=== PATIENT | female | born 1995 | race African-American/Black ===

== ENCOUNTER 2017-12-19 09:10 | Emergency (ER) | payer OTHER ==
[~2017-12-19] VITALS: Ht 160 cm; Wt 68.0 kg
[~2017-12-19 09:10] MED LIST: BENTYL10 MG ORAL; KLOR-CON M1010 ME1 PO; NKM
[2017-12-19 09:15] VITALS: BP 152/105
[2017-12-19] MEDS ORDERED: LORazepam Inj 2mg/ml 1ml IV ONE (09:30)
--- NOTE | 2017-12-19 09:33 | Emergency Room Report ---
History of Present Illness General Chief Complaint: Nausea Source: Patient Present Illness HPI 22-year-old female presents ED for evaluation. Patient brought in by EMS. States that she smoked weed last night states she's been feeling very anxious and agitated since. Feels that her heart is racing. States that the weed was provided to her and she does not know what is in it. Denies chest pain or shortness of breath. Denies alcohol or other drug use. Denies hearing voices. No other aggravating relieving factors. Denies any other associated symptoms Allergies: Coded Allergies: No Known Allergies (Unverified , 09/30/15) Patient History Past Medical History: none Past Surgical History: none Pertinent Family History: none Social History: Denies: smoking, alcohol use, drug use Last Menstrual Period: currently on Now: No Immunizations: UTD Reviewed Nursing Documentation: PMH: Agreed; PSxH: Agreed Nursing Documentation-PMH Past Medical History: No Stated History Review of Systems All Other Systems: negative except mentioned in HPI Physical Exam Vital Signs Date Time Temp Pulse Resp B/P (MAP) Pulse Ox O2 Delivery O2 Flow Rate FiO2 12/19/17 09:03 98.2 18 152/105 98 Room Air 98.2 12/19/17 09:15 98 Sp02 EP Interpretation: reviewed, normal General Appearance: no apparent distress, alert, GCS 15, non-toxic Head: normocephalic, atraumatic Eyes: bilateral eye normal inspection, bilateral eye PERRL ENT: hearing grossly normal, normal pharynx, no angioedema, normal voice Neck: full range of motion, supple/symm/no masses Respiratory: chest non-tender, lungs clear, normal breath sounds, speaking full sentences Cardiovascular #1: regular rate, rhythm, no edema Cardiovascular #2: 2+ carotid (R), 2+ carotid (L), 2+ radial (R), 2+ radial (L) , 2+ dorsalis pedis (R), 2+ dorsalis pedis (L) Gastrointestinal: normal bowel sounds, non tender, soft, non-distended, no guarding, no rebound Rectal: deferred Genitourinary: normal inspection, no CVA tenderness Musculoskeletal: back normal, gait/station normal, normal range of motion, non- tender Neurologic: alert, oriented x3, responsive, motor strength/tone normal, sensory intact, speech normal Psychiatric: judgement/insight normal, memory normal, no suicidal/homicidal ideation, anxious Reflexes: 3+ bicep (R), 3+ bicep (L), 3+ tricep (R), 3+ tricep (L), 3+ knee (R) , 3+ knee (L) Skin: normal color, no rash, warm/dry, well hydrated Lymphatic: no adenopathy Medical Decision Making Diagnostic Impression: Primary Impression: Anxiety Additional Impression: Marijuana intoxication Qualified Codes: F12.929 - Cannabis use, unspecified with intoxication, unspecified ER Course Hospital Course 22 yo F presents with palpitations, anxiety after smoking marijuana Differential diagnoses include: arrythmia, anxiety, psychosis Clinical course Patient placed on stretcher. on manager cardiac cath. After initial history and physical I ordered labs, EKG, IVFs and ativan labs reviewed- no leukocytosis, hemoglobin/hematocrit stable, electrolytes okay , UDS + THC EKG - NSR, no acute ischemic changes interpreted by me Upon reassessment patient is observed feeling better. Patient states she feels better wishes to go home. Clinical findings consistent with anxiety reaction. Patient safe for discharge with close outpatient follow-up I. I feel this is a highly complex case requiring extensive working including EKG/Rhythm strip, Xray/CT/US, Blood/urine lab work, repeat exams while in ED, and administration of strong opiates/narcotics for pain control, admission to hospital or close patient follow up. Diagnosis - anxiety, marijuana intoxication Stable and discharged to home. Followup with PMD. Return to ED if symptoms recur or worse Labs Test 12/19/17 09:15 12/19/17 09:26 Urine HCG, Qualitative Negative (NEGATIVE) Urine Opiates Screen Negative (NEGATIVE) Urine Barbiturates Screen Negative (NEGATIVE) Phencyclidine (PCP) Screen Negative (NEGATIVE) Urine Amphetamines Screen Negative (NEGATIVE) Urine Benzodiazepines Screen Negative (NEGATIVE) Urine Cocaine Screen Negative (NEGATIVE) Urine Marijuana (THC) Screen Positive (NEGATIVE) White Blood Count 5.1 K/UL (4.8-10.8) Red Blood Count 5.12 M/UL (4.20-5.40) Hemoglobin 12.5 G/DL (12.0-16.0) Hematocrit 38.8 % (37.0-47.0) Mean Corpuscular Volume 76 FL (80-99) Mean Corpuscular Hemoglobin 24.5 PG (27.0-31.0) Mean Corpuscular Hemoglobin Concent 32.3 G/DL (32.0-36.0) Red Cell Distribution Width 14.8 % (11.6-14.8) Platelet Count 191 K/UL (150-450) Mean Platelet Volume 8.7 FL (6.5-10.1) Neutrophils (%) (Auto) 51.5 % (45.0-75.0) Lymphocytes (%) (Auto) 30.0 % (20.0-45.0) Monocytes (%) (Auto) 9.2 % (1.0-10.0) Eosinophils (%) (Auto) 8.1 % (0.0-3.0) Basophils (%) (Auto) 1.2 % (0.0-2.0) Sodium Level 141 MMOL/L (136-145) Potassium Level 3.8 MMOL/L (3.5-5.1) Chloride Level 107 MMOL/L (98-107) Carbon Dioxide Level 24 MMOL/L (21-32) Anion Gap 11 mmol/L (5-15) Blood Urea Nitrogen 6 mg/dL (7-18) Creatinine 0.7 MG/DL (0.55-1.30) Estimat Glomerular Filtration Rate > 60 mL/min (>60) Glucose Level 85 MG/DL (74-106) Calcium Level 9.0 MG/DL (8.5-10.1) Total Bilirubin 0.2 MG/DL (0.2-1.0) Aspartate Amino Transf (AST/SGOT) 40 U/L (15-37) Alanine Aminotransferase (ALT/SGPT) 51 U/L (12-78) Alkaline Phosphatase 75 U/L (46-116) Total Protein 7.3 G/DL (6.4-8.2) Albumin 3.8 G/DL (3.4-5.0) Globulin 3.5 g/dL Albumin/Globulin Ratio 1.1 (1.0-2.7) Salicylates Level 3.2 ug/mL (2.8-20) Acetaminophen Level < 2 MCG/ML (10-30) Serum Alcohol 12 mg/dL EKG Diagnostic Results Rate: normal Rhythm: NSR ST Segments: no acute changes ASA given to the pt in ED: No Rhythm Strip Diag. Results EP Interpretation: yes Rhythm: NSR, no PVC's, no ectopy Last Vital Signs Date Time Temp Pulse Resp B/P (MAP) Pulse Ox O2 Delivery O2 Flow Rate FiO2 12/19/17 09:15 98.2 98 18 152/105 98 Room Air 98.2 Status: improved Disposition: HOME, SELF-CARE Condition: Stable Referrals: Bam HANSEN,REFERRING (PCP) Bhavesh Chapman MD Dec 19, 2017 09:33
[2017-12-19 09:48] LABS: BASOPHILS % (AUTO) 1.2 % (0.0-2.0); EOSINOPHILS % (AUTO) 8.1 % (0.0-3.0); HEMATOCRIT 38.8 % (37.0-47.0); HEMOGLOBIN 12.5 G/DL (12.0-16.0); MEAN CORPUSCULAR VOLUME 76 FL (80-99); MONOCYTES % (AUTO) 9.2 % (1.0-10.0); NEUTROPHILS % (AUTO) 51.5 % (45.0-75.0); PLATELET COUNT 191 K/UL (150-450); RED BLOOD COUNT 5.12 M/UL (4.20-5.40); RED CELL DISTRIBUTION WIDTH 14.8 % (11.6-14.8); WHITE BLOOD COUNT 5.1 K/UL (4.8-10.8)
[2017-12-19 10:02] LABS: ANION GAP 11 mmol/L (5-15); BLOOD UREA NITROGEN 6 mg/dL (7-18); CARBON DIOXIDE 24 MMOL/L (21-32); CHLORIDE 107 MMOL/L (98-107); CREATININE 0.7 MG/DL (0.55-1.30); POTASSIUM 3.8 MMOL/L (3.5-5.1); SODIUM 141 MMOL/L (136-145)
[2017-12-19 10:07] LABS: ALANINE AMINOTRANSFERASE 51 U/L (12-78); ALBUMIN 3.8 G/DL (3.4-5.0); ALBUMIN/GLOBULIN RATIO 1.1 (1.0-2.7); ALKALINE PHOSPHATASE 75 U/L (46-116); ASPARTATE AMINO TRANSFERASE 40 U/L (15-37); BILIRUBIN,TOTAL 0.2 MG/DL (0.2-1.0)
[2017-12-19 10:43] VITALS: BP 138/98
--- NOTE | 2017-12-22 12:15 | Cardiology Report ---
APPROVED REPORT EKG Measurement Heart [id number] Normal sinus rhythm Normal ECG
== END 2017-12-19 10:45 | disposition home or self-care (01) ==
LOC: EDBD 09:10 → EMR 09:25
DX: F12.980 Cannabis use, unspecified with anxiety disorder (principal); R00.2 Palpitations
CPT/HCPCS: 36415; 80053; 80307; 80329; 81025; 85025; 93005; 96361; 96374; 96375; 99284; J2405; S0028

== ENCOUNTER 2019-03-06 16:01 | Emergency (ER) | payer OTHER ==
[~2019-03-06] VITALS: Ht 167.6 cm; Wt 65.8 kg
--- NOTE | 2019-03-06 16:40 | NUR ---
ED Nurse Note: Pt walked in from home complaining of vaginal bleeding x 7 days which is abnormal for her. She also said she took ecstacy last night and is very anxious. Heart rate elevated in 150s. Pt to be put in monitored bed. Respirations even and unlabored on room air. Vital signs stable otherwise
--- NOTE | 2019-03-06 17:14 | Emergency Room Report ---
History of Present Illness General Chief Complaint: Abdominal Pain Source: Patient Present Illness HPI 23 YO Female presents to the ED c/o palpitations, SOB, and heightened anxiety since approx 10am this morning. Pt. reports taking ecstasy at midnight last night. Pt. also c/o prolonged period. her cycle is normally 5 days. This cycle has been 7 days. Denies . Denies being sexually active. She is not on BC. She denies recent travel or immobilization. Patient denies cardiac history. Patient reports history of anxiety. Patient states she does not take any medications, vitamins or supplements. No other aggravating or relieving factors. Patient denies nausea, vomiting, constipation, diarrhea, or abdominal pain. She denies dysuria or hematuria. She reports some dizziness, Denies syncope or HOLLIS. denies visual changes. Allergies: Coded Allergies: No Known Allergies (Unverified , 09/30/15) Patient History Past Medical History: see triage record Past Surgical History: none Pertinent Family History: none Social History: Reports: drug use Last Menstrual Period: 02/27/19 Now: No Reviewed Nursing Documentation: PMH: Agreed; PSxH: Agreed Nursing Documentation-PMH Past Medical History: No Stated History Review of Systems All Other Systems: negative except mentioned in HPI Physical Exam Vital Signs Date Time Temp Pulse Resp B/P (MAP) Pulse Ox O2 Delivery O2 Flow Rate FiO2 03/06/19 16:16 98.2 147 24 163/96 (118) 100 Room Air Sp02 EP Interpretation: reviewed, normal General Appearance: no apparent distress, alert, GCS 15, non-toxic Head: normocephalic, atraumatic Eyes: bilateral eye normal inspection, bilateral eye PERRL, bilateral eye EOMI ENT: hearing grossly normal, normal voice Neck: full range of motion Respiratory: chest non-tender, lungs clear, normal breath sounds, no respiratory distress, no accessory muscle use, no wheezing, speaking full sentences Cardiovascular #1: regular rate, rhythm, no edema, tachycardia Gastrointestinal: normal bowel sounds, non tender, soft, non-distended, no guarding Genitourinary: no CVA tenderness, bladder normal, deferred - by pt. Musculoskeletal: normal range of motion, gait/station normal, non-tender Neurologic: alert, motor strength/tone normal, oriented x3, sensory intact, responsive, speech normal Psychiatric: judgement/insight normal, no suicidal/homicidal ideation, anxious Skin: no rash, normal color, normal inspection Lymphatic: no adenopathy Medical Decision Making PA Attestation Dr. Tilley Is my supervising Physician whom patient management has been discussed with. Diagnostic Impression: Primary Impression: Methamphetamine abuse Additional Impressions: Anxiety Hypokalemia Anemia Qualified Codes: D64.9 - Anemia, unspecified DUB (dysfunctional uterine bleeding) ER Course 23 YO Female presents to the ED c/o palpitations, SOB, and heightened anxiety since approx 10am this morning. Pt. reports taking ecstasy at midnight last night. Pt. also c/o prolonged period. her cycle is normally 5 days. This cycle has been 7 days. Denies . Denies being sexually active. She is not on BC. She denies recent travel or immobilization. Patient denies cardiac history. Patient reports history of anxiety. Patient states she does not take any medications, vitamins or supplements. No other aggravating or relieving factors. Patient denies nausea, vomiting, constipation, diarrhea, or abdominal pain. She denies dysuria or hematuria. She reports some dizziness, Denies syncope or HOLLIS. denies visual changes. Pt is hyperactive, and has a very anxious and restless affect. Ddx considered but are not limited to OD, SI/HI, psychosis, UTI, intoxication, Drug SE, PE, [place], DUB, /misscarriage/ectopic, anxiety reaction Vital signs: Pt. is tachycardic otherwise remaining VS are WNL, pt. is afebrile H&PE are most consistent with precipitated anxiety secondary to illicit drug use. pt. non-toxic in appearance, anxious and restless. ORDERS: -CBC: mild non-specific anemia --no evidence of significant acute blood loss that would require emergent intervention -CMP: potassium 2.9 -UA: negative for infection see results attached. -UDS: Positive for amphetamines Urine Hcg: Negative - Lipase: elevated mildly- 481 -PT/PTT: WNL -EK Sinus Tach. ED INTERVENTIONS: - 1mg Ativan PO -500 cc NS bolus x 2 for a total of 1 liter -60Meq Kcl PO After interventions, pt. tachycardia lowered significantly/ resolved. Pt. continues to be NAD, non-toxic in appearance. NO evidence of respiratory distress. DISCHARGE: At this time pt. is stable for d/c to home. Will provide printed patient care instructions, and any necessary prescriptions. Care plan and follow up instructions have been discussed with the patient prior to discharge. Labs Test 03/06/19 17:35 03/06/19 18:10 White Blood Count 9.7 K/UL (4.8-10.8) Red Blood Count 4.72 M/UL (4.20-5.40) Hemoglobin 11.8 G/DL (12.0-16.0) Hematocrit 36.1 % (37.0-47.0) Mean Corpuscular Volume 77 FL (80-99) Mean Corpuscular Hemoglobin 25.0 PG (27.0-31.0) Mean Corpuscular Hemoglobin Concent 32.7 G/DL (32.0-36.0) Red Cell Distribution Width 13.7 % (11.6-14.8) Platelet Count 200 K/UL (150-450) Mean Platelet Volume 7.5 FL (6.5-10.1) Neutrophils (%) (Auto) 62.3 % (45.0-75.0) Lymphocytes (%) (Auto) 26.9 % (20.0-45.0) Monocytes (%) (Auto) 7.8 % (1.0-10.0) Eosinophils (%) (Auto) 0.9 % (0.0-3.0) Basophils (%) (Auto) 2.2 % (0.0-2.0) Prothrombin Time 10.4 SEC (9.30-11.50) Prothromb Time International Ratio 1.0 (0.9-1.1) Activated Partial Thromboplast Time 29 SEC (23-33) Sodium Level 136 MMOL/L (136-145) Potassium Level 2.9 MMOL/L (3.5-5.1) Chloride Level 97 MMOL/L (98-107) Carbon Dioxide Level 21 MMOL/L (21-32) Anion Gap 18 mmol/L (5-15) Blood Urea Nitrogen 10 mg/dL (7-18) Creatinine 0.9 MG/DL (0.55-1.30) Estimat Glomerular Filtration Rate > 60 mL/min (>60) Glucose Level 101 MG/DL (74-106) Calcium Level 9.3 MG/DL (8.5-10.1) Total Bilirubin 0.2 MG/DL (0.2-1.0) Aspartate Amino Transf (AST/SGOT) 67 U/L (15-37) Alanine Aminotransferase (ALT/SGPT) 42 U/L (12-78) Alkaline Phosphatase 103 U/L (46-116) Total Protein 8.6 G/DL (6.4-8.2) Albumin 4.3 G/DL (3.4-5.0) Globulin 4.3 g/dL Albumin/Globulin Ratio 1.0 (1.0-2.7) Lipase 481 U/L (73-393) Urine Color Red Urine Appearance Cloudy Urine pH 6.5 (4.5-8.0) Urine Specific [place] 1.015 (1.005-1.035) Urine Protein 3+ (NEGATIVE) Urine Glucose (UA) Negative (NEGATIVE) Urine Ketones 3+ (NEGATIVE) Urine Blood 5+ (NEGATIVE) Urine Nitrite Negative (NEGATIVE) Urine Bilirubin Negative (NEGATIVE) Urine Urobilinogen Normal MG/DL (0.0-1.0) Urine Leukocyte Esterase 1+ (NEGATIVE) Urine RBC Tntc /HPF (0 - 2) Urine WBC 2-4 /HPF (0 - 2) Urine Squamous Epithelial Cells Few /LPF (NONE/OCC) Urine Bacteria Few /HPF (NONE) Urine HCG, Qualitative Negative (NEGATIVE) Urine Opiates Screen Negative (NEGATIVE) Urine Barbiturates Screen Negative (NEGATIVE) Phencyclidine (PCP) Screen Negative (NEGATIVE) Urine Amphetamines Screen Positive (NEGATIVE) Urine Benzodiazepines Screen Negative (NEGATIVE) Urine Cocaine Screen Negative (NEGATIVE) Urine Marijuana (THC) Screen Negative (NEGATIVE) EKG Diagnostic Results EP Interpretation: Dr. Tilley Rate: tachycardiac - 110 Rhythm: NSR ST Segments: no acute changes ASA given to the pt in ED: No PA Scribe Text This Interpretation was scribed by CARLOS Mahan. Last Vital Signs Date Time Temp Pulse Resp B/P (MAP) Pulse Ox O2 Delivery O2 Flow Rate FiO2 03/06/19 16:16 98.2 147 24 163/96 (118) 100 Room Air Disposition: HOME, SELF-CARE Scripts Iron,Carbonyl/Ascorbic Acid (IRON 100-VITAMIN C TABLET) 1 Each Tablet 1 EACH PO BID, #20 TAB Prov: Hannah Mahan 03/06/19 Referrals: Bam HANSENREFERRING (PCP) Patient Instructions: Hypokalemia, Iron Deficiency Anemia, Adult, [id number] Additional Instructions: STOP USE OF ILLICIT DRUGS Take medications as directed. Follow up with a Primary Care Provider in 3-5 days, even if your symptoms have resolved. --Please review list of primary care clinics, if you do not already have a primary care provider Return sooner to ED if new symptoms occur, or current symptoms become worse. - Please note that this Emergency Department Report was dictated using [employer] technology software, occasionally this can lead to erroneous entry secondary to interpretation by the dictation equipment. Hannah Mahan Mar 06, 2019 17:14
[2019-03-06] MEDS ORDERED: LORazepam Inj 2mg/ml 1ml IV ONE (17:15)
[2019-03-06 17:30] VITALS: BP 143/79
[2019-03-06 18:04] LABS: BASOPHILS % (AUTO) 2.2 % (0.0-2.0); EOSINOPHILS % (AUTO) 0.9 % (0.0-3.0); HEMATOCRIT 36.1 % (37.0-47.0); HEMOGLOBIN 11.8 G/DL (12.0-16.0); LYMPHOCYTES % (AUTO) 26.9 % (20.0-45.0); MEAN CORPUSCULAR VOLUME 77 FL (80-99); MONOCYTES % (AUTO) 7.8 % (1.0-10.0); NEUTROPHILS % (AUTO) 62.3 % (45.0-75.0); PLATELET COUNT 200 K/UL (150-450); RED BLOOD COUNT 4.72 M/UL (4.20-5.40); RED CELL DISTRIBUTION WIDTH 13.7 % (11.6-14.8); WHITE BLOOD COUNT 9.7 K/UL (4.8-10.8)
[2019-03-06 18:13] LABS: ANION GAP 18 mmol/L (5-15); BLOOD UREA NITROGEN 10 mg/dL (7-18); CALCIUM 9.3 MG/DL (8.5-10.1); CARBON DIOXIDE 21 MMOL/L (21-32); CHLORIDE 97 MMOL/L (98-107); CREATININE 0.9 MG/DL (0.55-1.30); POTASSIUM 2.9 MMOL/L (3.5-5.1); SODIUM 136 MMOL/L (136-145)
[2019-03-06 18:17] LABS: ALANINE AMINOTRANSFERASE 42 U/L (12-78); ALBUMIN 4.3 G/DL (3.4-5.0); ALKALINE PHOSPHATASE 103 U/L (46-116); ASPARTATE AMINO TRANSFERASE 67 U/L (15-37); BILIRUBIN,TOTAL 0.2 MG/DL (0.2-1.0)
[2019-03-06 18:38] LABS: APPEARANCE,URINE CLOUDY; BILIRUBIN, URINE NEGATIVE (NEGATIVE); GLUCOSE, URINE (UA) NEGATIVE (NEGATIVE); KETONES,URINE 3+ (NEGATIVE); LEUKOCYTE ESTERASE ,URINE 1+ (NEGATIVE); NITRITE,URINE NEGATIVE (NEGATIVE); PH,URINE 6.5 (4.5-8.0); PROTEIN,URINE 3+ (NEGATIVE); UROBILINOGEN,URINE NORMAL MG/DL (0.0-1.0)
[2019-03-06 18:39] LABS: COLOR,URINE RED
[2019-03-06 18:54] VITALS: BP 138/72
--- NOTE | 2019-03-06 19:03 | NUR ---
HAND-OFF: Report given to Angelic WRIGHT.
[2019-03-06] MEDS ORDERED: IRON 100-VITAM1 EACH PO (19:24)
[2019-03-06 19:30] VITALS: BP 138/72
--- NOTE | 2019-03-06 19:30 | NUR ---
ED Nurse Note: Pt cleared by health care Provider for discharge. DC instructions/prescription was given and explained to pt and verbalized understanding of teachings. All medical deviecs such as ID band and iv removed. Pt is AAO x4, ambulatory and left with all personal belongings.
== END 2019-03-06 19:30 | disposition home or self-care (01) ==
LOC: EMR 17:05
DX: F15.10 Other stimulant abuse, uncomplicated (principal); F41.9 Anxiety disorder, unspecified; E87.6 Hypokalemia; D64.9 Anemia, unspecified; N93.8 Other specified abnormal uterine and vaginal bleeding
CPT/HCPCS: 36415; 80053; 80307; 81003; 81025; 82962; 83690; 85025; 85610; 85730; 93005; 96361; 96374; J7030; J7040; Z7502; 99284; J8499

== ENCOUNTER 2019-10-09 | Emergency (ER) | payer OTHER ==
[~2019-10-09] VITALS: Ht 172.7 cm; Wt 65.8 kg
[~2019-10-09] MED LIST changes: +IRON 100-VITAM1 EACH PO
--- NOTE | 2019-10-09 00:05 | NUR ---
ED Nurse Note: brought in by ambulance farooq ra 27 from home c/o nausea and vomitting s/p cocaine use and etoh. patient ao4. cooperative crying denies any pain. refused to wear gown; attached to monitor; NSR 122. all safety measures met. Addendum: 10/09/19 at 0030 by LCRISOSTOM Sinus tach 122
[2019-10-09 00:10] VITALS: BP 156/100
--- NOTE | 2019-10-09 00:10 | NUR ---
ED Nurse Note: IV access established. blood collected; sent down to lab
[2019-10-09] MEDS ORDERED: LORazepam Inj 2mg/ml 1ml IV ONE (00:15)
--- NOTE | 2019-10-09 00:15 | NUR ---
ED Nurse Note: patient attempted to provide urine sample via bedside commode. unable to provide at this time; refused straight cath. pt states will provide when able. repositioned for comfort. denies n/v; nsr at 74
--- NOTE | 2019-10-09 00:30 | NUR ---
ED Nurse Note: Urine collected; sent down to lab. patient calm and cooperative in bed. vitals stable to baseline. will continue to monitor.
--- NOTE | 2019-10-09 00:43 | Emergency Room Report ---
History of Present Illness General Chief Complaint: Substance Abuse Present Illness HPI Patient is a 23-year-old female brought in by EMS after increased agitation after recent use of alcohol and cocaine. Patient states she used cocaine recently prior to arrival. Had been brought in by EMS. Was noted to have sinus tachycardia on EKG. Denies any prior medical history. Denies any recent injury. 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: No (Evgeny Schultz MD) Patient History Past Medical History: see triage record Reviewed Nursing Documentation: PMH: Agreed; PSxH: Agreed (Evgeny Schultz MD) Review of Systems All Other Systems: negative except mentioned in HPI (Evgeny Schultz MD) Physical Exam Vital Signs Date Time Temp Pulse Resp B/P (MAP) Pulse Ox O2 Delivery O2 Flow Rate FiO2 10/09/19 00:02 98.6 122 22 156/100 (118) 98 Room Air Sp02 EP Interpretation: reviewed, normal General Appearance: normal inspection, well appearing, no apparent distress, alert, GCS 15, non-toxic Head: atraumatic ENT: normal ENT inspection, hearing grossly normal, normal voice Neck: normal inspection, full range of motion, supple, no bony tend Respiratory: normal inspection, lungs clear, normal breath sounds, no respiratory distress, no retraction, no wheezing Cardiovascular #1: regular rate, rhythm, no edema Gastrointestinal: normal inspection, normal bowel sounds, non tender, soft, no guarding, no hernia Genitourinary: no CVA tenderness Musculoskeletal: normal inspection, back normal, normal range of motion Neurologic: alert, motor strength/tone normal, 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 Differential diagnosis include was not limited to alcohol intoxication, substance abuse, allergic reaction among others. Because of complexity of patient's case laboratory tests and imaging studies were ordered. Laboratory testing showed markedly elevated blood alcohol level. Lipase was also minimally elevated. Patient was given IV hydration. She was also given IV Ativan due to agitation. Patient had improvement in agitation after medications. Patient was markedly intoxicated with alcohol and was observed in the emergency department. She was noted to have improvement in mental status after time. Patient require further sobering. She will be discharged when able to ambulate. This medical record is generated with [employer] laundry superintendent software. There may be some laundry superintendent discrepancies related to use of this software Labs Test 10/09/19 00:10 White Blood Count 7.2 K/UL (4.8-10.8) Red Blood Count 5.08 M/UL (4.20-5.40) Hemoglobin 11.5 G/DL (12.0-16.0) Hematocrit 36.6 % (37.0-47.0) Mean Corpuscular Volume 72 FL (80-99) Mean Corpuscular Hemoglobin 22.7 PG (27.0-31.0) Mean Corpuscular Hemoglobin Concent 31.5 G/DL (32.0-36.0) Red Cell Distribution Width 18.0 % (11.6-14.8) Platelet Count 157 K/UL (150-450) Mean Platelet Volume 7.6 FL (6.5-10.1) Neutrophils (%) (Auto) 46.4 % (45.0-75.0) Lymphocytes (%) (Auto) 37.3 % (20.0-45.0) Monocytes (%) (Auto) 10.0 % (1.0-10.0) Eosinophils (%) (Auto) 3.9 % (0.0-3.0) Basophils (%) (Auto) 2.3 % (0.0-2.0) Urine Color Pale yellow Urine Appearance Clear Urine pH 8 (4.5-8.0) Urine Specific [place] 1.010 (1.005-1.035) Urine Protein 2+ (NEGATIVE) Urine Glucose (UA) Negative (NEGATIVE) Urine Ketones Negative (NEGATIVE) Urine Blood Negative (NEGATIVE) Urine Nitrite Negative (NEGATIVE) Urine Bilirubin Negative (NEGATIVE) Urine Urobilinogen Normal MG/DL (0.0-1.0) Urine Leukocyte Esterase 1+ (NEGATIVE) Urine RBC 0-2 /HPF (0 - 2) Urine WBC 0-2 /HPF (0 - 2) Urine Squamous Epithelial Cells Few /LPF (NONE/OCC) Urine Bacteria None /HPF (NONE) Urine HCG, Qualitative Negative (NEGATIVE) Sodium Level 141 MMOL/L (136-145) Potassium Level 3.7 MMOL/L (3.5-5.1) Chloride Level 103 MMOL/L (98-107) Carbon Dioxide Level 22 MMOL/L (21-32) Anion Gap 17 mmol/L (5-15) Blood Urea Nitrogen 7 mg/dL (7-18) Creatinine 1.0 MG/DL (0.55-1.30) Estimat Glomerular Filtration Rate > 60 mL/min (>60) Glucose Level 109 MG/DL (74-106) Calcium Level 9.1 MG/DL (8.5-10.1) Total Bilirubin 0.2 MG/DL (0.2-1.0) Aspartate Amino Transf (AST/SGOT) 116 U/L (15-37) Alanine Aminotransferase (ALT/SGPT) 54 U/L (12-78) Alkaline Phosphatase 99 U/L (46-116) Total Protein 8.1 G/DL (6.4-8.2) Albumin 4.4 G/DL (3.4-5.0) Globulin 3.7 g/dL Albumin/Globulin Ratio 1.2 (1.0-2.7) Lipase 465 U/L (73-393) Salicylates Level 1.9 ug/mL (2.8-20) Urine Opiates Screen Negative (NEGATIVE) Acetaminophen Level < 2 MCG/ML (10-30) Urine Barbiturates Screen Negative (NEGATIVE) Phencyclidine (PCP) Screen Negative (NEGATIVE) Urine Amphetamines Screen Negative (NEGATIVE) Urine Benzodiazepines Screen Negative (NEGATIVE) Urine Cocaine Screen Negative (NEGATIVE) Urine Marijuana (THC) Screen Positive (NEGATIVE) Serum Alcohol 452 mg/dL (Evgeny Schultz MD) Lab Results Impression 0600: I, Dr Sana Quesada, have assumed care of the patient. Initial workup, history, and physical performed by previous provider has been reviewed by myself and I have performed my own physical exam of the patient. Patient here with nausea and vomiting after alcohol intoxication (drank 10 shots yesterday) Labs reviewed. Patient has elevated lipase level of 465. EtOH level is 452. Patient is neurologically intact. Abdominal examination is non tender and non-peritoneal. UDS is positive for marijuana. Family was called to pick patient up. Patient has now been observed in the emergency department for over 6-7 hours. Initiated p.o. challenge. Patient was to tolerate p.o. food and fluid without issue despite lipase level 452. Offered admission for pain control, IVF and bowel rest but patient declines and states she feels well enough to go home. Upon arrival the patients fingerstick glucose was normal with no evidence of hypoglycemia. The patient has no evidence of injury or tenderness of the head or neck, thus immediate imaging of the brain and spine was not felt to be necessary. The patient has no significant tremors or tachycardia, and their presentation seems most consistent with alcohol intoxication without withdrawal. The patient will be observed in the emergency department with serial neurologic exams for improvement in their mental status. - REASSESSMENT - After serial neurologic exams in the emergency department, the patients mental status significantly improved. The patient was able to follow commands and is clinically sober. They have no focal neurologic deficits and were able to ambulate with a steady gait without assistance. The patients presentation seems to be consistent with alcohol intoxication, which has resolved, without any complications such as alcohol withdrawal, head injury, GI bleeding, or intracranial bleeding. The patient appears to be safe for discharge home. Patient understands not to drive and appears able to care for themselves. Recommend bowel rest and hydration, advance diet as tolerated. Pertinent results reviewed with the patient. I educated the patient on the current treatment plan including the risks, benefits, and alternatives. I also discussed the extent and limitations of the current evaluation. The patient expressed understanding and agreement with plan. I recommended PMD follow-up within 1-2 days. Also advised that the patient return to the Emergency Department as soon as possible if they experience any new, persistent, or worsening symptoms. (Sana Quesada D.O.) Rhythm Strip Diag. Results Rhythm Strip Time: 06:17 EP Interpretation: yes Rate: 70 Rhythm: NSR (Sana Quesada D.O.) Last Vital Signs Date Time Temp Pulse Resp B/P (MAP) Pulse Ox O2 Delivery O2 Flow Rate FiO2 10/09/19 00:10 122 22 Room Air 10/09/19 00:10 98.6 156/100 98 Status: improved (Evgeny Schultz MD) Reevaluation Time: 06:17 Status: improved (Sana Quesada D.O.) Disposition: HOME, SELF-CARE Admit Decision Time: 06:29 (Sana Quesada D.O.) Condition: Stable Scripts Ondansetron Odt* (ZOFRAN ODT*) 4 Mg Tab.rapdis 4 MG BC EVERY 8 HOURS, #10 TAB 0 Refills Prov: Sana Quesada D.O. 10/09/19 Omeprazole (OMEPRAZOLE) 20 Mg Capsule. 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 Do not drink and drive. Do not drive or operate heavy machinery while intoxicated. Follow-up with your doctor sooner if your condition requires a more timely clinical reevaluation. Return to the emergency department immediately if you feel that your condition is worsening or if you have any new or concerning symptoms. Review your discharge instructions and take any prescriptions given as instructed. Evgeny Schultz MD Oct 09, 2019 00:42 Sana Quesada D.O. Oct 09, 2019 06:18
[2019-10-09 00:50] LABS: BASOPHILS % (AUTO) 2.3 % (0.0-2.0); EOSINOPHILS % (AUTO) 3.9 % (0.0-3.0); HEMATOCRIT 36.6 % (37.0-47.0); HEMOGLOBIN 11.5 G/DL (12.0-16.0); LYMPHOCYTES % (AUTO) 37.3 % (20.0-45.0); MEAN CORPUSCULAR VOLUME 72 FL (80-99); NEUTROPHILS % (AUTO) 46.4 % (45.0-75.0); PLATELET COUNT 157 K/UL (150-450); RED BLOOD COUNT 5.08 M/UL (4.20-5.40); WHITE BLOOD COUNT 7.2 K/UL (4.8-10.8)
[2019-10-09 00:55] LABS: ANION GAP 17 mmol/L (5-15); BLOOD UREA NITROGEN 7 mg/dL (7-18); CALCIUM 9.1 MG/DL (8.5-10.1); CARBON DIOXIDE 22 MMOL/L (21-32); CHLORIDE 103 MMOL/L (98-107); POTASSIUM 3.7 MMOL/L (3.5-5.1); SODIUM 141 MMOL/L (136-145)
[2019-10-09 01:04] LABS: APPEARANCE,URINE CLEAR; BILIRUBIN, URINE NEGATIVE (NEGATIVE); COLOR,URINE PALE YELLOW; GLUCOSE, URINE (UA) NEGATIVE (NEGATIVE); KETONES,URINE NEGATIVE (NEGATIVE); LEUKOCYTE ESTERASE ,URINE 1+ (NEGATIVE); NITRITE,URINE NEGATIVE (NEGATIVE); PH,URINE 8 (4.5-8.0); PROTEIN,URINE 2+ (NEGATIVE); UROBILINOGEN,URINE NORMAL MG/DL (0.0-1.0)
[2019-10-09 01:10] LABS: ALANINE AMINOTRANSFERASE 54 U/L (12-78); ALBUMIN 4.4 G/DL (3.4-5.0); ALBUMIN/GLOBULIN RATIO 1.2 (1.0-2.7); ALKALINE PHOSPHATASE 99 U/L (46-116); ASPARTATE AMINO TRANSFERASE 116 U/L (15-37); BILIRUBIN,TOTAL 0.2 MG/DL (0.2-1.0)
[2019-10-09 02:00] VITALS: BP 134/86
--- NOTE | 2019-10-09 02:00 | NUR ---
ED Nurse Note: PATIENT SLEEPING IN BED WITH NO SIGNS OF ACUTE DISTRESS. RESPIRATIONS EVEN AND UNLABORED.
[2019-10-09] MEDS ORDERED: OMEPRAZOLE20 M2 ORAL (04:36)
[2019-10-09 05:00] VITALS: BP 146/79
--- NOTE | 2019-10-09 05:00 | NUR ---
ED Nurse Note: PATIENT SLEEPING IN BED. RESPIRATIONS EVEN AND UNLABORED. VITALS STABLE TO BASELINE. WILL CONTINUE TO MONITOR.
--- NOTE | 2019-10-09 06:12 | NUR ---
ED Nurse Note: PATIENT AWAKE BUT STILL SLIGHTLY INTOXICATED. VERBALIZES UNDERSTANDING OF SITUATION. REQUEST TO SLEEP UNTIL SOBER ENOUGH TO GO HOME. PROVIDED WATER AND TOILETING. PATIENT REMAINS CALM AND COOPERATIVE.
[2019-10-09 06:14] VITALS: BP 117/79
--- NOTE | 2019-10-09 06:25 | NUR ---
ED Nurse Note: PATIENT ABLE TO WALK WITH STEADY GAIT; ABLE TO TOLERATED PO INTAKE. ERMD AT BEDSIDE.
[2019-10-09] MEDS ORDERED: ONDANSETRON ODT4 MG BC (06:40)
--- NOTE | 2019-10-09 06:54 | NUR ---
ER DISCHARGE NOTE: Patient is cleared to be discharged per ERMD, pt is aox4, on room air, with stable vital signs. pt was given dc and prescription instructions, pt was able to verbalize understanding, pt id band and iv site removed without complications. pt is able to ambulate with steady gait. per ermd, patient may sleep until family comes to tow picker patient. dc papers prescriptions and all belongings remain at bedside.
--- NOTE | 2019-10-09 07:14 | NUR ---
HAND-OFF: Report given to raine muñoz rn. endorsed pt d/c to family.
[2019-10-09 09:30] VITALS: BP 120/82
--- NOTE | 2019-10-09 09:30 | NUR ---
ER DISCHARGE NOTE: Patient is cleared to be discharged per ERMD, pt is aox4, on room air, with stable vital signs. pt was given dc and prescription instructions, pt was able to verbalize understanding, pt id band and iv site removed without complications. pt is able to ambulate with steady gait. pt took all belongings. Pt left ED, picked up by [employer] with license plate #[id number] [facility].
== END 2019-10-09 09:30 | disposition home or self-care (01) ==
LOC: EDUNIT# → EDBD → EMR 01:34
DX: T50.901A Poisoning by unspecified drugs, medicaments and biological substances, accidental (unintentional), initial encounter (principal); Y92.9 Unspecified place or not applicable; F10.129 Alcohol abuse with intoxication, unspecified; K85.90 Acute pancreatitis without necrosis or infection, unspecified; R11.2 Nausea with vomiting, unspecified; F12.90 Cannabis use, unspecified, uncomplicated; R00.0 Tachycardia, unspecified
CPT/HCPCS: 36415; 80053; 80307; 81003; 81025; 83690; 85025; 96374; G0480; G0481; Z7502; 99284

== ENCOUNTER 2020-02-20 17:47 | Emergency (ER) | payer OTHER ==
[~2020-02-20] VITALS: Ht 167.6 cm; Wt 68.0 kg
[~2020-02-20 17:47] MED LIST changes: +OMEPRAZOLE20 M2 ORAL; +ONDANSETRON ODT4 MG BC
[2020-02-20 17:55] VITALS: BP 132/76
--- NOTE | 2020-02-20 18:15 | Emergency Room Report ---
History of Present Illness General Chief Complaint: General Complaint Source: EMS Present Illness HPI 24-year-old female presents to the emergency department after having an emotional episode after being broken up with by her girlfriend. Patient also reports that she recently got herpes from her girlfriend. Patient states she is having some vaginal discharge and is concerned for STDs. Patient denies drug u se however she did disclose to triage that she had recent cocaine use. She denies SI or HI. Patient reports history of seizures but states she is not taking any medications besides Advil. Patient denies any other medical problems. She denies pain, chest pain, shortness of breath. She denies abdominal pain/tenderness, constipation, diarrhea, nausea or vomiting. Allergies: Coded Allergies: No Known Allergies (Unverified , 09/30/15) COVID-19 Screening Contact w/high risk pt: No Experienced COVID-19 symptoms?: No COVID-19 Testing performed MANAGER HUMAN RESOURCES: No Patient History Past Medical History: see triage record Past Surgical History: none Pertinent Family History: none Now: No Reviewed Nursing Documentation: PMH: Agreed; PSxH: Agreed Nursing Documentation-PMH Past Medical History: No History, Except For Hx Hypertension: Yes History Of Psychiatric Problem: Yes Review of Systems All Other Systems: negative except mentioned in HPI Physical Exam Vital Signs Date Time Temp Pulse Resp B/P (MAP) Pulse Ox O2 Delivery O2 Flow Rate FiO2 02/20/20 17:44 97.5 100 18 160/100 (120) 100 Room Air Sp02 EP Interpretation: reviewed, normal General Appearance: no apparent distress, alert, GCS 15, non-toxic Head: normocephalic, atraumatic Eyes: bilateral eye normal inspection, bilateral eye PERRL ENT: hearing grossly normal, normal voice Neck: full range of motion Respiratory: chest non-tender, lungs clear, normal breath sounds, no respiratory distress, no accessory muscle use, no wheezing, speaking full sentences Cardiovascular #1: regular rate, rhythm Gastrointestinal: normal bowel sounds, non tender, soft, non-distended, no guarding Rectal: deferred Genitourinary: normal inspection, no CVA tenderness, ext genitalia/vag normal, other - Pt. on her period. no obvious dc in the vaginal vault other than blood. Musculoskeletal: back normal, normal range of motion, gait/station normal, non- tender Neurologic: alert, motor strength/tone normal, oriented x3, sensory intact, responsive, speech normal Psychiatric: judgement/insight normal Skin: no rash, normal color Lymphatic: no adenopathy Medical Decision Making PA Attestation Dr. Schultz is my supervising Physician whom patient management has been discussed with. Diagnostic Impression: Primary Impression: Alcohol intoxication Qualified Codes: F10.920 - Alcohol use, unspecified with intoxication, unco mplicated ER Course 24-year-old female presents to the emergency department after having an emotional episode after being broken up with by her girlfriend. Patient also reports that she recently got herpes from her girlfriend. Patient states she is having some vaginal discharge and is concerned for STDs. Patient denies drug use however she did disclose to triage that she had recent cocaine use. She denies SI or HI. Patient reports history of seizures but states she is not taking any medications besides Advil. Patient denies any other medical problems. She denies pain, chest pain, shortness of breath. She denies abdominal pain/tenderness, constipation, diarrhea, nausea or vomiting. Pt as a flat affect, she does not easily provide details in her answers to HPI and ROS questions. Ddx considered but are not limited to OD, SI/HI, psychosis, UTI, intoxication Vital signs: are WNL, pt. is afebrile H&PE are most consistent with behavioral/mental health issue, possible intoxication. ORDERS: -CBC, CMP:WNL -UA: negative for infection see results attached. -- blood c/w being on period. -UDS: -Salicylates:WNL - Acetaminophen: WNL -Serum ETOH: 464 - Wet mount: bacteria only, no clue, yeast or trich. ED INTERVENTIONS: - After review of labs and wet mount results with pt. She is very sleepy and is not sure if she wants to be prophylactically treated for STD. - Pt. allowed to sleep/rest until clinically sober. DISPOSITION: signed out to attending physician pending reassessment for clinical sobriety and DC Labs Test 02/20/20 18:06 02/20/20 18:15 Urine Color Yellow Urine Appearance Cloudy Urine pH 6 (4.5-8.0) Urine Specific [place] 1.015 (1.005-1.035) Urine Protein 3+ (NEGATIVE) Urine Glucose (UA) Negative (NEGATIVE) Urine Ketones 1+ (NEGATIVE) Urine Blood 5+ (NEGATIVE) Urine Nitrite Negative (NEGATIVE) Urine Bilirubin Negative (NEGATIVE) Urine Urobilinogen 1 MG/DL (0.0-1.0) Urine Leukocyte Esterase Negative (NEGATIVE) Urine RBC Tntc /HPF (0 - 2) Urine WBC 0-2 /HPF (0 - 2) Urine Squamous Epithelial Cells Few /LPF (NONE/OCC) Urine Bacteria Moderate /HPF (NONE) Urine Opiates Screen Negative (NEGATIVE) Urine Barbiturates Screen Negative (NEGATIVE) Phencyclidine (PCP) Screen Negative (NEGATIVE) Urine Amphetamines Screen Negative (NEGATIVE) Urine Benzodiazepines Screen Negative (NEGATIVE) Urine Cocaine Screen Negative (NEGATIVE) Urine Marijuana (THC) Screen Negative (NEGATIVE) White Blood Count 8.9 K/UL (4.8-10.8) Red Blood Count 5.05 M/UL (4.20-5.40) Hemoglobin 11.2 G/DL (12.0-16.0) Hematocrit 34.6 % (37.0-47.0) Mean Corpuscular Volume 69 FL (80-99) Mean Corpuscular Hemoglobin 22.2 PG (27.0-31.0) Mean Corpuscular Hemoglobin Concent 32.5 G/DL (32.0-36.0) Red Cell Distribution Width 18.5 % (11.6-14.8) Platelet Count 268 K/UL (150-450) Mean Platelet Volume 7.9 FL (6.5-10.1) Neutrophils (%) (Auto) 48.6 % (45.0-75.0) Lymphocytes (%) (Auto) 36.9 % (20.0-45.0) Monocytes (%) (Auto) 8.7 % (1.0-10.0) Eosinophils (%) (Auto) 4.5 % (0.0-3.0) Basophils (%) (Auto) 1.3 % (0.0-2.0) Sodium Level 141 MMOL/L (136-145) Potassium Level 3.6 MMOL/L (3.5-5.1) Chloride Level 104 MMOL/L (98-107) Carbon Dioxide Level 25 MMOL/L (21-32) Anion Gap 12 mmol/L (5-15) Blood Urea Nitrogen 12 mg/dL (7-18) Creatinine 0.8 MG/DL (0.55-1.30) Estimat Glomerular Filtration Rate > 60 mL/min (>60) Glucose Level 114 MG/DL (74-106) Calcium Level 8.4 MG/DL (8.5-10.1) Total Bilirubin 0.2 MG/DL (0.2-1.0) Aspartate Amino Transf (AST/SGOT) 52 U/L (15-37) Alanine Aminotransferase (ALT/SGPT) 35 U/L (12-78) Alkaline Phosphatase 88 U/L (46-116) Total Creatine Kinase 198 U/L (26-308) Total Protein 8.2 G/DL (6.4-8.2) Albumin 3.9 G/DL (3.4-5.0) Globulin 4.3 g/dL Albumin/Globulin Ratio 0.9 (1.0-2.7) Salicylates Level 3.6 ug/mL (2.8-20) Acetaminophen Level < 2 MCG/ML (10-30) Serum Alcohol 464 mg/dL Last Vital Signs Date Time Temp Pulse Resp B/P (MAP) Pulse Ox O2 Delivery O2 Flow Rate FiO2 02/20/20 17:55 97.6 82 20 132/76 100 Room Air Signed Out To: Dr. Schultz Referrals: Bam HANSEN,REFERRING (PCP) Hannah Mahan Feb 20, 2020 18:14
[2020-02-20 18:43] LABS: BASOPHILS % (AUTO) 1.3 % (0.0-2.0); EOSINOPHILS % (AUTO) 4.5 % (0.0-3.0); HEMATOCRIT 34.6 % (37.0-47.0); HEMOGLOBIN 11.2 G/DL (12.0-16.0); LYMPHOCYTES % (AUTO) 36.9 % (20.0-45.0); MEAN CORPUSCULAR VOLUME 69 FL (80-99); MONOCYTES % (AUTO) 8.7 % (1.0-10.0); NEUTROPHILS % (AUTO) 48.6 % (45.0-75.0); PLATELET COUNT 268 K/UL (150-450); RED BLOOD COUNT 5.05 M/UL (4.20-5.40); RED CELL DISTRIBUTION WIDTH 18.5 % (11.6-14.8); WHITE BLOOD COUNT 8.9 K/UL (4.8-10.8)
[2020-02-20 19:18] LABS: APPEARANCE,URINE CLOUDY; BILIRUBIN, URINE NEGATIVE (NEGATIVE); GLUCOSE, URINE (UA) NEGATIVE (NEGATIVE); KETONES,URINE 1+ (NEGATIVE); LEUKOCYTE ESTERASE ,URINE NEGATIVE (NEGATIVE); NITRITE,URINE NEGATIVE (NEGATIVE); PH,URINE 6 (4.5-8.0); PROTEIN,URINE 3+ (NEGATIVE); UROBILINOGEN,URINE 1 MG/DL (0.0-1.0)
[2020-02-20 19:23] LABS: COLOR,URINE YELLOW
[2020-02-20 19:26] LABS: ANION GAP 12 mmol/L (5-15); BLOOD UREA NITROGEN 12 mg/dL (7-18); CALCIUM 8.4 MG/DL (8.5-10.1); CARBON DIOXIDE 25 MMOL/L (21-32); CHLORIDE 104 MMOL/L (98-107); CREATININE 0.8 MG/DL (0.55-1.30); POTASSIUM 3.6 MMOL/L (3.5-5.1); SODIUM 141 MMOL/L (136-145)
[2020-02-20 19:32] LABS: ALANINE AMINOTRANSFERASE 35 U/L (12-78); ALBUMIN 3.9 G/DL (3.4-5.0); ALBUMIN/GLOBULIN RATIO 0.9 (1.0-2.7); ALKALINE PHOSPHATASE 88 U/L (46-116); ASPARTATE AMINO TRANSFERASE 52 U/L (15-37); BILIRUBIN,TOTAL 0.2 MG/DL (0.2-1.0); CREATINE KINASE 198 U/L (26-308)
[2020-02-20 20:50] VITALS: BP 130/74
[2020-02-21 01:00] VITALS: BP 124/64
[2020-02-21 05:49] VITALS: BP 138/70
[2020-02-21 06:00] VITALS: BP 138/70
== END 2020-02-21 06:00 | disposition home or self-care (01) ==
LOC: EDBD 17:47 → EMR 18:05
DX: F10.129 Alcohol abuse with intoxication, unspecified (principal); N89.8 Other specified noninflammatory disorders of vagina; I10 Essential (primary) hypertension
CPT/HCPCS: 36415; 80053; 80307; 81003; 82550; 85025; 87086; 87210; G0480; G0481; Z7502; 99284